=== PATIENT | female | born 1995 | race Caucasian/White ===

== ENCOUNTER 2016-11-27 12:13 | Emergency (ER) | payer OTHER ==
[~2016-11-27] VITALS: Ht 160 cm; Wt 145.6 kg
[~2016-11-27 12:13] MED LIST: CENTRUM COMPLE1 EACH PO; CENTRUM ULTRA1 EAC1 PO; KEFLEX500 MG PO; MACROBID100 MG PO; METFORMIN HCL500 MG PO; MYLAN PO; NYSTATIN-TRIAMC15 GM TP; OMEPRAZOLE40 M1 PO; ONDANSETRON ODT8 MG PO; PHENERGAN25 MG PR; PRILOSEC40 MG PO; TRAMADOL HCL50 MG PO; TYLENOL WITH C1 EACH PO; VOLTAREN-XR100 MG PO; ZOFRAN ODT8 MG SL; ZOFRAN4 MG PO; [UNRECOGNIZED DRUG - MIXTURE] PO
[2016-11-27] MEDS ORDERED: FIORICET,ESG1 TABLET PO (15:30)
[2016-11-27 16:01] VITALS: BP 135/74
== END 2016-11-27 16:02 | disposition home or self-care (01) ==
LOC: EME 12:13
DX: R51 Headache (principal)
CPT/HCPCS: 70486; 99281; 99284

== ENCOUNTER 2017-03-11 18:30 | Emergency (ER) | payer OTHER ==
[~2017-03-11] VITALS: Ht 162.6 cm; Wt 148.3 kg
[~2017-03-11 18:30] MED LIST changes: +FIORICET,ESG1 TABLET PO
[2017-03-11 20:00] LABS: HEMATOCRIT 41.1 % (36.0-46.0); MCH 27.5 PG (29.0-34.0); MCHC 33.1 G/DL (30.0-36.0); MCV 83.2 FL (83-99); MEAN PLAT.VOLUME 10.5 uM^3 (9.5-12.4); PLATELET COUNT 257 K/uL (156-360); RBC DIS.WIDTH-CV 12.5 % (11.8-14.6); RBC DIS.WIDTH-SD 37.7 % (39-53); RED BLOOD COUNT 4.94 M/uL (3.80-5.20); WHITE BLOOD COUNT 12.1 K/uL (4.1-10.2)
[2017-03-11 20:10] LABS: CHLORIDE 107 mEq/L (99-109); POTASSIUM 3.8 mEq/L (3.7-5.4); SODIUM 139 mEq/L (136-147)
[2017-03-11 20:10] LABS: ADD MIUA? YES; BILIRUBIN NEGATIVE; BLOOD MODERATE; COLOR YELLOW ((YELLOW)); GLUCOSE (STRIP) NEGATIVE; KETONES NEGATIVE; LEUKOCYTES NEGATIVE; NITRITE NEGATIVE; PROTEIN (STRIP) NEGATIVE; SPECIFIC GRAVITY 1.012 (1.000-1.030); UROBILINOGEN 0.2 MG/DL (0.2-1.0)
[2017-03-11 20:12] LABS: GLUCOSE 173 mg/dL (70-99)
[2017-03-11 20:14] LABS: ANION GAP 11 MEQ/L (2-14); TOTAL BILIRUBIN 0.2 mg/dL (0.0-1.0)
[2017-03-11 20:15] LABS: BACTERIA RARE /HPF; EPITHELIAL CELLS 2+ /HPF; HYALINE CASTS 0-5 /LPF; MUCUS TRACE /LPF; RED BLOOD CELLS 40-50 /HPF (0-5); WHITE BLOOD CELLS 0-5 /HPF (0-5)
[2017-03-11 20:16] LABS: ALKALINE PHOSPHATASE 55 IU/L (3-129); GFR ESTIMATE (CALCULATED) > 59 mL/min/
[2017-03-11 20:17] LABS: UREA NITROGEN (BUN) 11 mg/dL (9-23)
[2017-03-11 20:19] LABS: LIPASE 38 U/L (1.0-51.0)
[2017-03-11] MEDS ORDERED: ZOFRAN ODT4 MG PO (21:14)
[2017-03-11] MEDS ORDERED: PERCOCET 5/31 TABLET PO (21:14)
[2017-03-11 21:45] VITALS: BP 108/65
== END 2017-03-11 21:47 | disposition home or self-care (01) ==
LOC: EME 18:30
PROVIDERS: Physician Assistant
DX: R10.32 Left lower quadrant pain (principal); R31.9 Hematuria, unspecified; E11.9 Type 2 diabetes mellitus without complications; Z79.84 Long term (current) use of oral hypoglycemic drugs; K21.9 Gastro-esophageal reflux disease without esophagitis; Z87.442 Personal history of urinary calculi
CPT/HCPCS: 74176; 80053; 81003; 83690; 85027; 99281; 99283; J1885

== ENCOUNTER 2017-05-02 19:01 | Emergency (ER) | payer OTHER ==
[~2017-05-02] VITALS: Ht 160 cm; Wt 147.8 kg
[~2017-05-02 19:01] MED LIST changes: +PERCOCET 5/31 TABLET PO; +ZOFRAN ODT4 MG PO
[2017-05-02 19:58] LABS: MCH 27.1 PG (29.0-34.0); MCHC 33.5 G/DL (30.0-36.0); MEAN PLAT.VOLUME 10.3 uM^3 (9.5-12.4); PLATELET COUNT 304 K/uL (156-360); RBC DIS.WIDTH-CV 13.2 % (11.8-14.6); RBC DIS.WIDTH-SD 38.4 % (39-53); RED BLOOD COUNT 5.31 M/uL (3.80-5.20); WHITE BLOOD COUNT 11.5 K/uL (4.1-10.2)
[2017-05-02 20:08] LABS: CHLORIDE 108 mEq/L (99-109); POTASSIUM 4.2 mEq/L (3.7-5.4); SODIUM 140 mEq/L (136-147)
[2017-05-02 20:10] LABS: GLUCOSE 164 mg/dL (70-99)
[2017-05-02 20:11] LABS: ANION GAP 11 MEQ/L (2-14)
[2017-05-02 20:14] LABS: GFR ESTIMATE (CALCULATED) > 59 mL/min/
[2017-05-02 20:15] LABS: UREA NITROGEN (BUN) 12 mg/dL (9-23)
[2017-05-02 22:04] LABS: ADD MIUA? YES; BILIRUBIN NEGATIVE; BLOOD SMALL; COLOR YELLOW ((YELLOW)); GLUCOSE (STRIP) NEGATIVE; KETONES 20; LEUKOCYTES TRACE; NITRITE NEGATIVE; PROTEIN (STRIP) 30; UROBILINOGEN 0.2 MG/DL (0.2-1.0)
[2017-05-02 22:37] LABS: WHITE BLOOD CELLS 0-5 /HPF (0-5)
[2017-05-02 22:38] LABS: BACTERIA 2+ /HPF; CASTS NONE SEEN /LPF; CRYSTALS NONE SEEN; EPITHELIAL CELLS 2+ /HPF; MUCUS NONE SEEN /LPF; UCUL ADDED? YES
[2017-05-02] MEDS ORDERED: BENTYL20 MG PO (22:53)
[2017-05-02 23:19] VITALS: BP 119/87
[2017-05-04] MEDS ORDERED: ELAVIL10 MG PO (18:30)
[2017-05-04] MEDS ORDERED: LEVONO-E ESTRA1 EACH PO (18:31)
[2017-05-04] MEDS ORDERED: FLONASE ALLERG9.9 ML BOTH NARES (18:31)
[2017-05-04] MEDS ORDERED: ZYRTEC10 M3 PO (18:31)
[2017-05-04] MEDS ORDERED: GLUCOTROL10 MG PO (18:32)
[2017-05-04] MEDS ORDERED: SINGULAIR10 MG PO (18:32)
[2017-05-04] MEDS ORDERED: NAPROSYN500 MG PO (18:32)
[2017-05-04] MEDS ORDERED: ALDACTONE100 MG PO (18:33)
[2017-05-04] MEDS ORDERED: PROMETHAZINE HC25 M1 PO (18:33)
[2017-05-04] MEDS ORDERED: TOPAMAX50 MG PO (18:34)
[2017-05-04] MEDS ORDERED: IMITREX25 MG PO (18:48)
== END 2017-05-02 23:21 | disposition home or self-care (01) ==
LOC: EME 19:01 → RME 19:01
DX: R10.9 Unspecified abdominal pain (principal); R11.0 Nausea; K62.5 Hemorrhage of anus and rectum; Z87.442 Personal history of urinary calculi
CPT/HCPCS: 80048; 81003; 85027; 86900; 86901; 87086; 93005; 99281; 99285; J2405; J7030

== ENCOUNTER → 2017-05-07 | Outpatient (CLI) | payer OTHER ==
[~2017-05-07] VITALS: Ht 162.6 cm; Wt 147.4 kg
[~2017-05-07] MED LIST changes: +ALDACTONE100 MG PO; +BENTYL20 MG PO; +ELAVIL10 MG PO; +FLONASE ALLERG9.9 ML BOTH NARES; +GLUCOTROL10 MG PO; +IMITREX25 MG PO; +LEVONO-E ESTRA1 EACH PO; +NAPROSYN500 MG PO; +PROMETHAZINE HC25 M1 PO; +SINGULAIR10 MG PO; +TOPAMAX50 MG PO; +ZYRTEC10 M3 PO
[2017-05-07 12:38] LABS: POINT-OF-CARE METER ID UU14107333
[2017-05-07 13:48] LABS: POINT-OF-CARE METER ID UU13113819
== END | disposition home or self-care (01) ==
LOC: AMB 10:36
PROVIDERS: Internal Medicine
PROC: 0DBP8ZX Excision of Rectum, Via Natural or Artificial Opening Endoscopic, Diagnostic (ICD-10-PCS; principal; 2017-05-07)
DX: K62.1 Rectal polyp (principal); K64.8 Other hemorrhoids; R10.30 Lower abdominal pain, unspecified; K52.9 Noninfective gastroenteritis and colitis, unspecified; G43.709 Chronic migraine without aura, not intractable, without status migrainosus; E78.5 Hyperlipidemia, unspecified; K21.9 Gastro-esophageal reflux disease without esophagitis; E11.9 Type 2 diabetes mellitus without complications; E66.9 Obesity, unspecified; E28.2 Polycystic ovarian syndrome; M41.9 Scoliosis, unspecified; H57.9 Unspecified disorder of eye and adnexa; Z90.49 Acquired absence of other specified parts of digestive tract; Z82.49 Family history of ischemic heart disease and other diseases of the circulatory system; Z79.4 Long term (current) use of insulin; J30.9 Allergic rhinitis, unspecified; Z88.0 Allergy status to penicillin
CPT/HCPCS: 82948; 88305; 93005; J2250